=== PATIENT | female | born 1990 | race Two or more races ===

== ENCOUNTER 2024-10-19 12:00 | Observation (INO) | payer MEDICAID ==
[~2024-10-19] VITALS: Ht 149.9 cm; Wt 106.1 kg
--- NOTE | 2024-10-19 13:31 | DVH ---
BIOPHYSICAL PROFILE HISTORY: poly/ late entry TECHNIQUE: Multiple transabdominal real-time grayscale sonographic images through the gravid uterus of the fetus with duplex Doppler color flow and M-mode spectral analysis FINDINGS: BIOPHYSICAL PROFILE: breathing score: 2 movement score: 2 tone score: 2 Quantitative JENNIFER score: 2 (JENNIFER: 18.0 Cm.) Total score: 8 The cervix appears closed. Single live fetus in cephalic presentation. heart rate 144 beats per minute. Anterior placenta without previa or abruption IMPRESSION: Biophysical profile score: 8
[2024-10-19] MEDS ORDERED: PREN-129 OR ×2 (14:01)
--- NOTE | 2024-10-19 17:34 | DVHDS2 ---
Discharge Summary Date of Admission Oct 19, 2024 at 12:00 Date of Discharge: Oct 19, 2024 Admitting Diagnosis Thirty-five weeks polyhydramnios here for NST BPP which were both performed and reassuring Wounds: None Labs/Diagnostic Data: None Brief Hx & Hospital Course: Patient observed with for NST BPP both reassuring Consults/Reason for consult The Operations or Procedures None Condition at Discharge: Good Final Diagnosis/Problems List 35 weeks history of polyhydramnios Discharge Disposition: Home Discharge Instruct/Medications Diet: Regular Activity: No Restrictions, As Tolerated Follow Up/Referral: As scheduled for routine monitoring Medications: Resume home med Miscellaneous Medications Vit W/ Ferrous Fumara (), 1 OR, (Reported) Discharge Statement: "Patient was advised to return to the ER or call 911 if any headaches, dizziness, shortness of breath, chest pain, abdominal pain, bleeding, fevers, or worsening of medical condition. Patient was counseled about treatment plan, medications, possible side effects, patientverbalized understanding. All questions were answered to the best of my ability. This discharge took greater then 30 minutes in planning, reviewing documentation, counseling the patient, and discussing with other team members." DME: Diagnosis: Thirty-five week polyhydramnios reassuring ASSESSMENT ASSESSMENT Assessment Visit Coding OBGYN Date of Service: Oct 19, 2024 Billing Provider: JI CARDONA DO TECHNOLOGY TRAINING ASSOCIATE Common Visit Codes: [id number] INP/OBS CARE(MOD), [id number] INP/OBS CARE(HIGH), 90948-OBH/OBS SAME DATE (LOW) TECHNOLOGY TRAINING ASSOCIATE Procedure Codes: 85802-02- NON-STRESS TEST JI CARDONA DO Oct 19, 2024 17:34
== END 2024-10-19 14:16 | disposition home or self-care (01) ==
LOC: LDRP 12:00
PROVIDERS: ADMIT Obstetrics & Gynecology; ATTEND Obstetrics & Gynecology
DX: O40.3XX0 Polyhydramnios, third trimester, not applicable or unspecified (principal); Z3A.35 35 weeks gestation of pregnancy; Z98.890 Other specified postprocedural states
CPT/HCPCS: 59025; 76819; 81002; 94760; G0378

== ENCOUNTER 2024-10-19 14:41 | Outpatient (CLI) | payer MEDICAID ==
[~2024-10-19 14:41] MED LIST: PREN-129 OR
[2024-10-19 15:07] LABS: Hemoglobin 11.1 g/dL (12.2-16.2)
[2024-10-19 15:08] LABS: Hematocrit 33.3 % (36.0-46.0); Mean Corpuscular Hemoglobin 25.8 pg (28.0-32.0); Mean Corpuscular Volume 77.7 fL (80.0-100.0); Nucleated Red Blood Cells % 0.2 %
[2024-10-21 01:06] LABS: Chlamydia Trachomatis, NAA Negative (Negative); Neisseria gonorrhoeae, NAA Negative (Negative)
== END 2024-10-19 17:00 | disposition home or self-care (01) ==
LOC: LAB 14:41
DX: Z34.80 Encounter for supervision of other normal pregnancy, unspecified trimester (principal); Z3A.00 Weeks of gestation of pregnancy not specified
CPT/HCPCS: 36415; 85025; 86780

== ENCOUNTER 2024-11-11 06:37 | Inpatient (IN) | payer MEDICAID ==
[~2024-11-11] VITALS: Ht 144.8 cm; Wt 101.6 kg
[2024-11-11 12:43] LABS: Hematocrit 34.0 % (36.0-46.0); Hemoglobin 11.2 g/dL (12.2-16.2); Mean Corpuscular Hemoglobin 25.4 pg (28.0-32.0); Mean Corpuscular Volume 77.0 fL (80.0-100.0); Nucleated Red Blood Cells % 0.3 %
[2024-11-11 12:51] LABS: Alanine Aminotransferase < 9 U/L (7-40); Albumin 3.6 g/dL (3.2-4.8); Alkaline Phosphatase 121 U/L (46-116); Anion Gap 11 (5-15); BUN/Creatinine Ratio 10.0 (10.0-20.0); Bilirubin, Total 0.5 mg/dL (0.2-1.0); Blood Urea Nitrogen < 5 mg/dL (9-23); Calcium 9.1 mg/dL (8.7-10.4); Carbon Dioxide 22 mmol/L (20-31); Chloride 107 mmol/L (98-107); Glucose 77 mg/dL (74-106); Potassium 3.8 mmol/L (3.5-5.1); Sodium 140 mmol/L (136-145); Total Protein 6.8 g/dL (5.7-8.2)
[2024-11-11 12:59] LABS: Urine Protein, UAD 1+ (Negative)
[2024-11-11 13:00] LABS: Amphetamine Screen, Urine Neg (NEGATIVE); Barbiturate Scree,Urine Neg (NEGATIVE); Benzodiazephine Screen, Urine Neg (NEGATIVE); Cannabinoid Screen, Urine Neg (NEGATIVE); Cocaine Screen, Urine Neg (NEGATIVE); Opiate Scree,Urine Neg (NEGATIVE); Phencyclidine Screen, Urine Neg (NEGATIVE)
[2024-11-11 13:04] LABS: INR 0.95 (0.9-1.15); Partial Thromboplastin Time 26.9 SEC (24.5-34.5); Prothrombin Time 10.1 sec (9.3-11.8)
--- NOTE | 2024-11-12 18:28 | DVHHP ---
ADMIT DATE: 11/13/2024 CHIEF COMPLAINT: Desires repeat section. HISTORY OF PRESENT ILLNESS: The patient is a 34-year-old 4, para 2-0-1-2 with EDC 11/22, estimated age of 39 weeks, admitted for repeat section. The patient had previous section x 2. She has had somewhat of a lower JENNIFER. She wishes to proceed with planned repeat section. She denies having any vaginal bleeding or rupture of membranes. PAST MEDICAL HISTORY: The patient is deaf, hearing problem. PAST SURGICAL HISTORY: x 2. SOCIAL HISTORY: None. FAMILY HISTORY: None. OBSTETRIC AND GYNECOLOGIC HISTORY: Two sections. ALLERGIES: No known drug allergies. REVIEW OF SYSTEMS: Consistent with HPI. PHYSICAL EXAMINATION: VITAL SIGNS: Stable, afebrile. HEENT: Within normal limits. CARDIOVASCULAR: Regular rate and rhythm. LUNGS: Clear to auscultation. BREASTS: Symmetrical. No masses. ABDOMEN: Gravid, positive heart. PELVIC: Deferred. EXTREMITIES: No clubbing, cyanosis, or edema. IMPRESSION: * Intrauterine at 39 weeks. * Previous section x 2. * Desires repeat section. PLAN: Repeat section. Informed consent obtained. Risks and complications of surgery including infection, bleeding, hematoma formation, injury to bowel or bladder, surrounding organ, possibility of DVT, pulmonary embolism, and risk of anesthesia discussed with the patient. Options reviewed. All questions answered. The patient fully understands. She wishes to proceed with planned procedure. DO CLIVE Mathias TID: [id number] RECEIPT: [id number]
[2024-11-13] VITALS (13 sets, daily range): BP systolic 107–122; BP diastolic 62–77; PULSE 74–102; RESP 20; TEMP 97.9–98.8; O2SAT 95–98
[2024-11-13] MEDS: LACTATED RINGER'S 1,000 ML IV ONE (07:36)
[2024-11-13] MEDS ORDERED: IBUP-1456 PO (08:09)
[2024-11-13] MEDS ORDERED: HYDR-4072 PO (08:09)
[2024-11-13] MEDS ORDERED: DOCU-94 PO (08:09)
[2024-11-13] MEDS: GUM (CHEWING) 1 GUM CHEW CHEW ONE (08:15)
[2024-11-13] MEDS ORDERED: ONDANSETRON HCL 4 MG/2 ML VIAL IV PRN ×3 (08:15→09:30)
[2024-11-13] MEDS: LACT. RINGERS/OXYTOCIN 20UNITS 1,000 ML IV ONE (08:15)
[2024-11-13] MEDS ORDERED: BUPIVACAINE/DEXTROSE MPF 0.75% 2 ML AMP IT ONE (08:16)
[2024-11-13] MEDS ORDERED: MORPHINE SULF PF 5 MG/10 ML VIAL ONE (08:16)
[2024-11-13] MEDS: NALBUPHINE HCL 10 MG/1ml INJECTION SUBCUT ONE (09:30)
[2024-11-13] MEDS ORDERED: HYDROmorphone HCL 2 MG/ML VL/or syr IV PRN ×2 (09:30)
[2024-11-13] MEDS ORDERED: NALOXONE HCL 0.4 MG/ML VIAL IV PRN (09:30)
[2024-11-13] MEDS ORDERED: diphenhdrAMINE HCL 50 MG/1 ML VL IV PRN (09:30)
[2024-11-13] MEDS ORDERED: KETOROLAC TROMETH 30 MG/ML 1ML VIAL IV PRN (09:30)
[2024-11-13] MEDS ORDERED: ACETAMINOPHEN IV 1000 MG/100ML (10MG/ML) IV PRN (09:30)
[2024-11-13] MEDS: LACTATED RINGER'S 1,000 ML IV SCH (10:22)
[2024-11-13] MEDS: ceFAZolin 2 GM/D5W50ml 50 ML IV ONE (10:22)
[2024-11-13] MEDS: ACETAMINOPHEN IV 1000 MG/100ML (10MG/ML) IV PRN (11:56)
--- NOTE | 2024-11-13 12:27 | DVHOP2 ---
Operative Report DATE OF OPERATION:11/13/24 PREOPERATIVE DIAGNOSES: [term preg desiresrcs,previous cs x2,morbid obesity] POSTOPERATIVE DIAGNOSES: [same] OPERATION PERFORMED: Repeat Section FINDINGS: [f] . Apgars of [8] and [9]. Weight [good] crying tone. [clear] amniotic fluid. Placenta and three-vessel were intact. Normal tubes, ovaries, and uterus. SURGEON: Nemo Cooper D.O. PAID SEARCH MARKETING ANALYST: noc technician, catalina]. ANESTHESIOLOGIST: Navi vance ANESTHESIA: [Duramorph spinal, regional]. COMPLICATIONS: [none]. ESTIMATED BLOOD LOSS: [800] mL. BLOOD PRODUCTS USED: [none]. PROCEDURE IN DETAIL: The patient was taken to the operating room, placed in sitting position, and spinal was placed without difficulty. She was then prepped and draped in a sterile fashion. A low Pfannenstiel incision was made scapel. At this point, it was carried down through the rectus fascia, nicked in the midline, and carried laterally. The rectus muscles were in the midline. Peritoneum was identified and entered with sharp dissection. Vesicouterine peritoneum was taken off the lower uterine segment. A lower uterine transverse incision was made with a scalpel down the chorionic membranes, ruptured with hemostat. was in vertex position. One hand was placed in the lower uterine segment. Head was essentially delivered spontaneously. Nose and mouth were bulb suctioned. Shoulders and torso were delivered without difficulty. Again, pharynx, nose, and mouth were re-suctioned with vigorous crying tone. Cord was cut. The was handed off to the awaiting Respiratory. At this point, umbilical blood sample was taken. Placenta was removed. Uterus was exteriorized, cleared off all clots and debris, irrigated, and closed with a double layer of 0-Vicryl. The vesicouterine peritoneum was incorporated into this closure. We had complete hemostasis. EBL was [800] mL. The instrument, lap, and sponge count was correct x1. The uterus was placed back into the peritoneum. The peritoneal cavity was re-inspected and the lower uterine incision with good hemostasis. We closed the peritoneum with running continuous of 2-0 Vicryl. The Rectus Fascia was closed with 0-PDS, running continuous, looped-0. The skin was closed undermined, irrigated, and close with sindhu. CONDITION: The patient's and the infant's condition is stable and but guarded. Visit Coding OBGYN Date of Service: Nov 13, 2024 Billing Provider: NEMO COOPER DO VACCINE MANAGER Common Visit Codes: [id number] OBS CARE (HIGH) VACCINE MANAGER Procedure Codes: [id number] DELIVERY ONLY NEMO COOPER DO Nov 13, 2024 12:27
--- NOTE | 2024-11-13 12:30 | POSTOP ---
Post-Operative Note Post-Operative Note Preop Diagnosis term preg desires rcs,morbid obesity,previous csx2,hearing disorder Postop Diagnosis: same Operation performed rcs Specimen baby girl,apgars 8-9 Anesthesia: Regional Anesthesiologist: nugyen Blood Loss(fluid mgmt) 800ml Surgeon Linda Cooper Medical Imaging Technologist forrest Implant na Complications & Mgmt none Date 11/13/24 Time 12:27 Visit Coding OBGYN Date of Service: Nov 13, 2024 Billing Provider: LINDA COOPER DO ELECTRIC BLANKET PACKER Common Visit Codes: [id number] OBS CARE (HIGH) ELECTRIC BLANKET PACKER Procedure Codes: [id number] DELIVERY ONLY LINDA COOPER DO Nov 13, 2024 12:29
[2024-11-13] MEDS ORDERED: ceFAZolin 1GM/50ML 50 ML IV SCH (14:00)
[2024-11-13] MEDS: ceFAZolin 1GM/50ML 50 ML IV SCH (16:36)
[2024-11-13 21:26] LABS: Hematocrit 29.9 % (36.0-46.0); Hemoglobin 9.9 g/dL (12.2-16.2); Mean Corpuscular Hemoglobin 25.6 pg (28.0-32.0); Mean Corpuscular Volume 77.5 fL (80.0-100.0); Nucleated Red Blood Cells % 0.0 %
[2024-11-14] VITALS (8 sets, daily range): BP systolic 96–117; BP diastolic 50–71; PULSE 86–96; RESP 17–20; TEMP 97.8–98.8; O2SAT 95–99
[2024-11-14] MEDS ORDERED: HYDROcodone-ACET 5/325MG TAB PO PRN ×2 (05:00)
[2024-11-14] MEDS: SIMETHICONE 80 MG CHEWABLE TABLET PO SCH (05:41)
[2024-11-14 06:10] LABS: Hematocrit 28.2 % (36.0-46.0); Hemoglobin 9.4 g/dL (12.2-16.2); Mean Corpuscular Hemoglobin 26.1 pg (28.0-32.0); Mean Corpuscular Volume 78.0 fL (80.0-100.0); Nucleated Red Blood Cells % 0.0 %
--- NOTE | 2024-11-14 06:37 | DVHPN2 ---
Progress Note Date Seen: Nov 14, 2024 Subjective Liborio was sleeping upon entry to room. primary RN at bedside with CNM SUBJECTIVE -Lochia minimal -Regular diet well tolerated. -Ambulating and voiding well w/o feeling dizzy or lightheaded -Pain relieved with oral medication PRN -Passing flatus but no BM yet. -Combo feeding without problem vital signs Vital Sign Date Time Temp Pulse Resp B/P (MAP) Pulse Ox O2 Delivery O2 Flow Rate FiO2 11/14/24 02:30 98.0 88 20 111/68 (82) 98 98.0 11/13/24 18:55 Room Air 11/13/24 09:22 0 11/13/24 09:22 95 Total Intake and Output 11/13/24 11/13/24 11/14/24 15:00 23:00 07:00 Output Total 600 ml 850 ml 250 ml Balance -600 ml -850 ml -250 ml medications Current Medications Medications Dose Ordered Sig/Randi Route Start Time Stop Time Status Last Admin Dose Admin Lactated Ringer's 1,000 ml @ 125 mls/hr Q8H IV 11/13/24 06:00 11/13/24 10:22 125 MLS/HR Diphenhydramine HCl 25 mg Q4HP PRN IV 11/13/24 09:30 Ondansetron HCl 4 mg Q4HP PRN IV 11/13/24 09:30 Cefazolin Sodium 50 ml @ 100 mls/hr Q8H IV 11/13/24 17:00 11/14/24 09:29 11/14/24 01:09 100 MLS/HR Docusate Sodium 100 mg Q12HR PO 11/14/24 10:00 Dimethicone 80 mg QID PO 11/14/24 06:00 11/14/24 05:41 80 MG Ibuprofen 800 mg Q8HP PRN PO 11/14/24 05:00 Acetaminophen/ Hydrocodone Bitart 1 tab Q4HPRN PRN PO 11/14/24 05:00 laboratory and microbiology Laboratory Tests 11/14/24 05:52 11/11/24 12:05 Test 11/11/24 12:05 Range/Units Serum Glucose 77 74-106 mg/dL Objective Objective: -A&O x4. No apparent distress. Affect appropriate -Afebrile, VSS -Chest: heart and lung sounds normal. -Breasts: Nipples intact w/o cracks or soreness -Abdomen: normal BS, soft, non-tender, no rebound or guarding, fundus firm @ U- 1, -Lower abdominal incision site with dressing intact. Dressing almost entirely covered in dried blood. Some areas underneath maternal pannus appear wet. No edema, erythema or induration -Extremities: no edema or tenderness Problems(with codes): (1) Status post delivery Assessment/Plan Assessment: 34 yo now Post operative & ppd #1 s/p repeat Section, doing well. Blood Type: A+ Combo feeding Rubella Immune Plan: -Continue pain management with oral medications as previously ordered -Increase fluid intake and fiber in diet to promote regular bowel movements, Laxative PRN -Will continue to monitor incision dressing. Abdominal binder repositioned on top of incision -Educated patient on self-care -Continue routine care Plan discussed with: Patient Visit Coding OBGYN Date of Service: Nov 14, 2024 Billing Provider: YANE ELLIOTT CNM SOLAR SALES ENERGY ADVISOR Common Visit Codes: [id number] INP/OBS CARE(MOD) YANE ELLIOTT CNM Nov 14, 2024 06:37
[2024-11-14] MEDS: IBUPROFEN 800 MG TAB PO PRN (07:36)
[2024-11-14] MEDS: DOCUSATE SOD 100 MG CAP PO SCH (10:03)
[2024-11-14] MEDS: HYDROcodone-ACET 5/325MG TAB PO PRN (10:17)
[2024-11-15 02:59] VITALS: BP 129/70; PULSE 89; RESP 16; TEMP 98.5
[2024-11-15 07:30] VITALS: BP 118/62; PULSE 80; RESP 18; TEMP 97.9; O2SAT 97
--- NOTE | 2024-11-15 08:29 | DVHDS2 ---
Discharge Summary Discharge Summary Date of Admission: Nov 13, 2024 Date of Discharge: Nov 15, 2024 Discharge Diagnosis: Repeat Section Procedures First Degree Lower Cervical Transverse Section Hospital Course PP Note C- Section Subjective 34y/o now Post operative & ppd # 2 Repeat Section. 11/13/2024 Delivery of infant female @ 0854 QBL 300 ML Lochia minimal. Advancing Regular diet well tolerated. Ambulating and voiding well w/o feeling dizzy or lightheaded. Pain relieved with oral / IV / analgesics. Passing flatus but no BM yet. w/o problem Desires to be discharged today Blood Type: A Rh: Positive Antibody Negative Formula feeding Rubella Immune GBS unknown Hep: Negative Objective Vital Signs Date Time Temp Pulse Resp B/P (MAP) Pulse Ox O2 Delivery O2 Flow Rate FiO2 11/15/24 02:59 98.5 89 16 129/70 (89) 98.5 11/14/24 23:09 96 11/14/24 19:00 Room Air 11/13/24 09:22 0 11/13/24 09:22 95 I & O 11/15/24 07:00 Output Total 1300 ml Balance -1300 ml Output Urine Total 1300 ml # Voids 4 Laboratory Tests Test 11/14/24 05:52 11/11/24 12:43 11/11/24 12:42 11/11/24 12:05 Range/Units White Blood Count 7.5 4.4-10.8 10^3/uL Red Blood Count 3.61 L 4.0-5.20 10^6/uL Hemoglobin 9.4 L 12.2-16.2 g/dL Hematocrit 28.2 L 36.0-46.0 % Mean Corpuscular Volume 78.0 L 80.0-100.0 fL Mean Corpuscular Hemoglobin 26.1 L 28.0-32.0 pg Mean Corpuscular Hemoglobin Concent 33.4 32.0-36.0 g/dL Red Cell Distribution Width 14.7 H 11.8-14.3 % Platelet Count 209 140-450 10^3/uL Mean Platelet Volume 6.8 L 6.9-10.8 fL Neutrophils (%) (Auto) 74.1 37.0-80.0 % Lymphocytes (%) (Auto) 15.2 10.0-50.0 % Monocytes (%) (Auto) 9.3 0.0-12.0 % Eosinophils (%) (Auto) 1.0 0.0-7.0 % Basophils (%) (Auto) 0.4 0.0-2.0 % Neutrophils # (Auto) 5.6 1.6-8.6 10 ^3/uL Lymphocytes # (Auto) 1.1 0.4-5.4 10 ^3/uL Monocytes # (Auto) 0.7 0-1.3 10 ^3/uL Eosinophils # (Auto) 0.1 0-0.8 10 ^3/uL Basophils # (Auto) 0 0-0.2 10 ^3/uL Nucleated Red Blood Cells 0.0 % Urine Opiates Screen Neg NEGATIVE Urine Fentanyl Screen Neg NEGATIVE Urine Barbiturates Screen Neg NEGATIVE Urine Phencyclidine Screen Neg NEGATIVE Urine Amphetamines Screen Neg NEGATIVE Urine Benzodiazepines Screen Neg NEGATIVE Urine Cocaine Screen Neg NEGATIVE Urine Cannabinoids Screen Neg NEGATIVE Urine Color Yellow Yellow Urine Clarity Turbid H Clear Urine pH 6.5 5.0-9.0 Urine Specific [place] 1.024 1.001-1.035 Urine Protein 1+ H Negative Urine Ketones Negative Negative Urine Blood Negative Negative /uL Urine Nitrite Negative Negative Urine Bilirubin Negative Negative Urine Urobilinogen Normal Negative mg/dL Urine Leukocyte Esterase 3+ Negative /uL Urine RBC 3 0 - 4 /hpf Urine Microscopic WBC 79 H 0-5 /HPF Urine Squamous Epithelial Cells Many <5 /hpf Urine Bacteria Few H None Seen /hpf Urine Mucus Few None Seen Urine Glucose Normal Normal mg/dL Prothrombin Time 10.1 9.3-11.8 sec Prothrombin Time INR 0.95 0.9-1.15 Activated Partial Thromboplast Time 26.9 24.5-34.5 SEC Sodium Level 140 136-145 mmol/L Potassium Level 3.8 3.5-5.1 mmol/L Chloride Level 107 98-107 mmol/L Carbon Dioxide Level 22 20-31 mmol/L Anion Gap 11 5-15 Blood Urea Nitrogen < 5 L 9-23 mg/dL Creatinine 0.50 L 0.550-1.02 mg/dL Glomerular Filtration Rate Calc 126 >90 mL/min BUN/Creatinine Ratio 10.0 10.0-20.0 Serum Glucose 77 74-106 mg/dL Calcium Level 9.1 8.7-10.4 mg/dL Total Bilirubin 0.5 0.2-1.0 mg/dL Aspartate Amino Transferase (AST) 14 13-40 U/L Alanine Aminotransferase (ALT) < 9 7-40 U/L Alkaline Phosphatase 121 H 46-116 U/L Total Protein 6.8 5.7-8.2 g/dL Albumin 3.6 3.2-4.8 g/dL Treponema pallidum Antibody Non-reactive Negative Hepatitis B Surface Antigen Negative Negative Hepatitis C Antibody Negative Negative Chest: heart and lung sounds normal. Breasts: Nipples intact w/o cracks or soreness Abdomen: normal BS, soft, non-tender, no rebound or guarding, Fundus firm @ umbilicus, midline, lochia rubra with scant bleeding noted Bladder moderate distended, has not voided yet this morning upon assessment Lower abdominal Incision site with Sylke / dressing saturated will replace with new dressing . No new bleeding noted at the dressing site No edema, erythema or induration Extremities: no edema or tenderness Lochia - minimal Labs Assessment /Plan Pain control with oral medications Bowel regimen: Increase fluid intake and fiber in diet, Laxative PRN PP BCM Plan: unknown Discharge plan: May discharge home later today if condition remains stable FOR D/C SUMMARY Diet: Routine regular diet rich in fiber, protein, iron and vitamin C with adequate fluid intake. Activity: Unrestricted. Advance as tolerated. Balance activities with rest periods. No heavy lifting, pushing or straining. Pelvic rest x 6weeks Follow up with OB Provider in 1 week Medications: Ibuprofen 600mg every 6 hours as needed for pain. Continue Vitamin and iron Instructions: Post operative and self care instructions given. self care instructions given. emergency signs and symptoms including but not limited to pre- eclampsia precautions and signs of infection, PPH & of PPD reviewed with patient. Follow up with OB Provider in 1 week Discharge Disposition: Home Medications Current Medications Medications Dose Ordered Sig/Randi Route Start Time Stop Time Status Last Admin Dose Admin Lactated Ringer's 1,000 ml @ 125 mls/hr Q8H IV 11/13/24 06:00 11/13/24 10:22 125 MLS/HR Diphenhydramine HCl 25 mg Q4HP PRN IV 11/13/24 09:30 Ondansetron HCl 4 mg Q4HP PRN IV 11/13/24 09:30 Docusate Sodium 100 mg Q12HR PO 11/14/24 10:00 11/14/24 22:12 100 MG Dimethicone 80 mg QID PO 11/14/24 06:00 11/15/24 07:59 80 MG Ibuprofen 800 mg Q8HP PRN PO 11/14/24 05:00 11/15/24 03:10 800 MG Acetaminophen/ Hydrocodone Bitart 1 tab Q4HPRN PRN PO 11/14/24 05:00 Acetaminophen/ Hydrocodone Bitart 2 tab Q4HPRN PRN PO 11/14/24 10:00 11/15/24 05:02 2 TAB Discharge Care Plan Problem Pain, Risk for injury/Safety Goals Pain relieved Instructions Take Rx medications, Notify MD of any issues, Keep list of meds w/ you Risk factors Proper handwashing, Avoid infectious people, S/S to look for Visit Coding OBGYN Date of Service: Nov 15, 2024 Billing Provider: AMINATA ROMAN CNM FLOAT OPERATOR Common Visit Codes: [id number] OBS CARE (MOD), [id number] INP/OBS CARE(MOD) AMINATA ROMAN CNPRct 2024 08:29
[2024-11-15 09:58] VITALS: BP 118/62; PULSE 80; RESP 18; TEMP 97.9; O2SAT 97
== END 2024-11-15 10:22 | disposition home or self-care (01) | DRG 540 ==
LOC: PREOBSVTOIN 06:37 → LDRP 11-13 05:37
PROVIDERS: ADMIT Obstetrics & Gynecology; ATTEND Obstetrics & Gynecology
PROC: 10D00Z1 Extraction of Products of Conception, Low, Open Approach (ICD-10-PCS; principal; 2024-11-13 08:25)
DX: O41.03X0 Oligohydramnios, third trimester, not applicable or unspecified (principal); R71.0 Precipitous drop in hematocrit; O77.0 Labor and delivery complicated by meconium in amniotic fluid; O99.214 Obesity complicating childbirth; E66.01 Morbid (severe) obesity due to excess calories; O34.211 Maternal care for low transverse scar from previous cesarean delivery; Z37.0 Single live birth; H91.90 Unspecified hearing loss, unspecified ear; Z3A.39 39 weeks gestation of pregnancy
CPT/HCPCS: 36415; 80053; 80307; 81001; 81002; 85025; 85610; 85730; 86780; 86803; 86850; 86900; 86901; 87340; 94760; 94762; 96360; 96361; 96366; G0378; J0131; J2590